=== PATIENT | female | born 1975 | race Caucasian/White ===

== ENCOUNTER → 2024-01-02 09:49 | Outpatient (REF) | payer OTHER, SELFPAY | LOC: WDC 09:49 | PROVIDERS: ATTENDING PHYSICIAN Nurse Practitioner Family | DX: N63.10 Unspecified lump in the right breast, unspecified quadrant (principal); N63.41 Unspecified lump in right breast, subareolar | CPT/HCPCS: 76642; 77062; 77066 ==

== ENCOUNTER → 2024-01-09 07:57 | Outpatient (REF) | payer OTHER, SELFPAY ==
--- NOTE | 2024-01-09 14:08 | OID.BR.INTR ---
[facility] Breast Navigator - Initial
- -
Date of Contact: 01/09/24
Met with patient. Patient given written information on navigator services and support services available at [facility]. Will follow up as needed per protocol.
== END ==
LOC: WDC 07:57
PROVIDERS: ATTENDING PHYSICIAN Nurse Practitioner Family
DX: N63.14 Unspecified lump in the right breast, lower inner quadrant (principal)
CPT/HCPCS: 88305; 19083; 77065; 88341; 88342; 88360; A4648

== ENCOUNTER → 2024-03-31 | Outpatient (REF) | payer OTHER, SELFPAY | LOC: DHSLP | PROVIDERS: ATTENDING PHYSICIAN Nurse Practitioner Family; FAMILY PHYSICIAN Internal Medicine | DX: G47.30 Sleep apnea, unspecified (principal); R06.83 Snoring | CPT/HCPCS: 95810 ==

== ENCOUNTER → 2024-04-15 16:28 | Outpatient (REF) | payer OTHER, SELFPAY | LOC: MRI 3T 16:28 | PROVIDERS: ATTENDING PHYSICIAN Internal Medicine | DX: D05.11 Intraductal carcinoma in situ of right breast (principal) | CPT/HCPCS: 77049; A9585 ==

== ENCOUNTER → 2024-04-20 13:03 | Outpatient (REF) | payer OTHER, SELFPAY | LOC: WDC 13:03 | PROVIDERS: ATTENDING PHYSICIAN Surgery; FAMILY PHYSICIAN Internal Medicine | DX: R92.8 Other abnormal and inconclusive findings on diagnostic imaging of breast (principal) | CPT/HCPCS: 76642 ==

== ENCOUNTER → 2024-04-21 16:34 | Outpatient (REF) | payer OTHER, SELFPAY | LOC: MRI 3T 16:34 | PROVIDERS: ATTENDING PHYSICIAN Student in an Organized Health Care Education/Training Program; FAMILY PHYSICIAN Internal Medicine | DX: C50.911 Malignant neoplasm of unspecified site of right female breast (principal); M54.59 Other low back pain; R51.9 Headache, unspecified | CPT/HCPCS: 70553; A9575 ==

== ENCOUNTER → 2024-04-26 07:40 | Outpatient (REF) | payer OTHER, SELFPAY | LOC: PET 07:40 | PROVIDERS: ATTENDING PHYSICIAN Student in an Organized Health Care Education/Training Program | DX: C50.911 Malignant neoplasm of unspecified site of right female breast (principal) | CPT/HCPCS: 78815; A9552 ==

== ENCOUNTER → 2024-05-05 08:06 | Outpatient (REF) | payer OTHER, SELFPAY | LOC: HWRAD 08:06 | PROVIDERS: ATTENDING PHYSICIAN Nurse Practitioner Family; REFERRING PHYSICIAN Nurse Practitioner Adult Health | DX: E04.1 Nontoxic single thyroid nodule (principal) | CPT/HCPCS: 76536 ==

== ENCOUNTER → 2024-05-06 15:36 | Outpatient (REF) | payer OTHER, SELFPAY | LOC: RCS 15:36 | PROVIDERS: ATTENDING PHYSICIAN Student in an Organized Health Care Education/Training Program; FAMILY PHYSICIAN Nurse Practitioner Adult Health | DX: C50.911 Malignant neoplasm of unspecified site of right female breast (principal); M54.59 Other low back pain; R51.9 Headache, unspecified | CPT/HCPCS: 93306 ==

== ENCOUNTER → 2024-05-21 12:49 | Outpatient (REF) | payer OTHER, SELFPAY | LOC: WDC 12:49 | PROVIDERS: ATTENDING PHYSICIAN Nurse Practitioner Family | DX: R92.8 Other abnormal and inconclusive findings on diagnostic imaging of breast (principal) | CPT/HCPCS: 76642 ==

== ENCOUNTER → 2024-05-26 07:59 | Outpatient (REF) | payer OTHER, SELFPAY | LOC: HWRAD 07:59 | PROVIDERS: ATTENDING PHYSICIAN Nurse Practitioner Adult Health; FAMILY PHYSICIAN Nurse Practitioner Family | DX: N94.89 Other specified conditions associated with female genital organs and menstrual cycle (principal); R19.00 Intra-abdominal and pelvic swelling, mass and lump, unspecified site | CPT/HCPCS: 76830; 76856 ==

== ENCOUNTER → 2024-06-11 12:50 | Outpatient (REF) | payer OTHER, SELFPAY | LOC: HWRAD 12:50 | PROVIDERS: ATTENDING PHYSICIAN Nurse Practitioner Adult Health | DX: R10.12 Left upper quadrant pain (principal) | CPT/HCPCS: 76700 ==

== ENCOUNTER → 2024-07-01 12:58 | Outpatient (REF) | payer OTHER, SELFPAY | LOC: PET 12:58 | PROVIDERS: ATTENDING PHYSICIAN Student in an Organized Health Care Education/Training Program | DX: C50.911 Malignant neoplasm of unspecified site of right female breast (principal) | CPT/HCPCS: 78815; A9552 ==

== ENCOUNTER → 2024-08-11 09:25 | Outpatient (REF) | payer OTHER, SELFPAY | LOC: RCS 09:25 | PROVIDERS: ATTENDING PHYSICIAN Internal Medicine Cardiovascular Disease; FAMILY PHYSICIAN Nurse Practitioner Adult Health | DX: R00.2 Palpitations (principal); T45.1X5D Adverse effect of antineoplastic and immunosuppressive drugs, subsequent encounter; C50.811 Malignant neoplasm of overlapping sites of right female breast; Z17.1 Estrogen receptor negative status [ER-] | CPT/HCPCS: 93306 ==

== ENCOUNTER → 2024-08-13 08:51 | Outpatient (REF) | payer OTHER, SELFPAY | LOC: WDC 08:51 | PROVIDERS: ATTENDING PHYSICIAN Student in an Organized Health Care Education/Training Program | DX: R92.8 Other abnormal and inconclusive findings on diagnostic imaging of breast (principal) | CPT/HCPCS: 76642 ==

== ENCOUNTER → 2024-10-25 07:10 | Outpatient (REF) | payer OTHER, SELFPAY | LOC: HWRCS 07:10 | PROVIDERS: ATTENDING PHYSICIAN Nurse Practitioner; FAMILY PHYSICIAN Nurse Practitioner Adult Health | DX: C50.811 Malignant neoplasm of overlapping sites of right female breast (principal); Z17.1 Estrogen receptor negative status [ER-]; R92.8 Other abnormal and inconclusive findings on diagnostic imaging of breast | CPT/HCPCS: 93306 ==

== ENCOUNTER → 2025-02-21 09:13 | Outpatient (REF) | payer OTHER, SELFPAY | LOC: HWRCS 09:13 | PROVIDERS: ATTENDING PHYSICIAN Nurse Practitioner; FAMILY PHYSICIAN Nurse Practitioner Adult Health | DX: C50.811 Malignant neoplasm of overlapping sites of right female breast (principal) | CPT/HCPCS: 93306 ==

== ENCOUNTER → 2025-03-21 07:34 | Outpatient (REF) | payer OTHER, SELFPAY | LOC: RCS 07:34 | PROVIDERS: ATTENDING PHYSICIAN Internal Medicine Cardiovascular Disease; FAMILY PHYSICIAN Nurse Practitioner Adult Health | DX: D05.11 Intraductal carcinoma in situ of right breast (principal); I36.1 Nonrheumatic tricuspid (valve) insufficiency; C50.919 Malignant neoplasm of unspecified site of unspecified female breast | CPT/HCPCS: 93308; 93321; 93325 ==

== ENCOUNTER → 2025-04-25 09:11 | Outpatient (REF) | payer OTHER, SELFPAY | LOC: HWRAD 09:11 | PROVIDERS: ATTENDING PHYSICIAN Student in an Organized Health Care Education/Training Program; FAMILY PHYSICIAN Nurse Practitioner Adult Health | DX: C50.811 Malignant neoplasm of overlapping sites of right female breast (principal); Z17.1 Estrogen receptor negative status [ER-]; R92.8 Other abnormal and inconclusive findings on diagnostic imaging of breast; R19.7 Diarrhea, unspecified | CPT/HCPCS: 76700 ==

== ENCOUNTER → 2025-05-31 13:53 | Outpatient (REF) | payer OTHER, SELFPAY | LOC: RCS 13:53 | PROVIDERS: ATTENDING PHYSICIAN Physician Assistant; FAMILY PHYSICIAN Nurse Practitioner Adult Health | DX: Z85.3 Personal history of malignant neoplasm of breast (principal); T45.1X5D Adverse effect of antineoplastic and immunosuppressive drugs, subsequent encounter | CPT/HCPCS: 93306 ==